=== PATIENT | female | born 2000 ===

== ENCOUNTER 2024-02-20 08:37 | Inpatient (IN) ==
[2024-02-20] MEDS ORDERED: LIDOCAINE 1% LOCAL 20 ML VIAL INFIL PRN (09:29)
[2024-02-20] MEDS ORDERED: OXYTOCIN 30 UNITS/NSS 30 UNITS/500 ML BAG IV PRN (09:29)
--- NOTE | 2024-02-20 09:31 | History & Physical Report ---
Date of Service February 20, 2024 Assessment & Plan (1) 37 weeks gestation of : (2) PROM (premature rupture of membranes): (3) Poor patient attendance of care: Plan admit, iv, labs. urine drug screen due to poor care. will plan po cytotec due to unfavorable cx and prom. pt and partner made aware of off label use of this medication in obstetrics. fhts categ 1. gbs obtained, will plan pcn given unknown status. nursing trying to obtain old records. which once reviewed we can decide of other labs indicated. Records arrived and reviewed. >75 min spent face to face, non face to face and documentation. History of Present Illness Chief Complaint: leaking fluid Primary Care Provider: NO PCP 23yo at 37 /7 wks ega by LMP 06/05/23 for EDC 03/11/24 presents to L&D unassigned with leaking fluid since 0745 today, clear. Patient notes that she has been getting routine pnc in [facility]. However moved to [place] and has not established local care although that was her intention. She started pnc early with [facility] and notes normal labs, u/s at 10wks that matched her lmp dates. Cici u/s at 20wks showing cpcs, and dilated renal pelves. Sent to [facility] and had 2 visits with them, first one about late 20's gestation where they confirmed these anatomy findings and then 32wks when they noted they resolved and dismissed her from [facility] care. Sounds like that was about the time she stopped having routine visits. Notes normal glucose testing. taking pnv. No gbs done. PNC c/b 1. obesity 2. Poor care, no records here. PNL no records here as of yet. OBH: g1 GYNH: nl paps no stds PMH: denies history PSH: none SH: denies tobacco, etoh or drugs FH: no alesha anom or mr, her or fob family. her family history with distant maternal relatives with breast cancer. 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 Required: No Beliefs That Will Affect Care: None marital status: Single Current Living Situation: Spouse Current Living Situation Comment: Lives with boyfriend Other Information That Helps Us Care for You: No Assistive Devices: None Review of Systems as per Subjective / HPI Physical Exam Constitutional: WD/WN, vitals as above Respiratory: normal respiratory effort, lungs clear to auscultation Cardiovascular: Rate/Rhythm: regular rate and regular rhythm Gastrointestinal (Abdomen): soft gravid nt efw 7-8# Musculoskeletal: no edema nontender calves Neurologic: grossly normal Psychiatric: A+Ox3, euthymic affect Genitourinary: Manual OB Exam: + cervical dilation (1.5), + cervical effacement 50%, + station -2 and + amniotic fluid (gross srom ) clear OB Exam Monitor Tracing: + external FHT monitor used, + external uterine monitor used (no ctx), + category I and + normal FHT variability Coding Level of Care Code 59328 INT INP/OBS CARE 3/75MIN Diagnoses 37 weeks gestation of Z3A.37 PROM (premature rupture of membranes) O42.90 Poor patient attendance of care O09.30
[2024-02-20] MEDS: LACTATED RINGER'S 1,000 ML IV PRN (10:33)
[2024-02-20] MEDS: PENICILLIN GK 6 MU in DEXTROSE 5% 250 ML IV STA (10:34)
[2024-02-20 10:43] LABS: Hematocrit (blood only) 33.1 % (37.0-47.0); Hemoglobin 10.9 g/dl (12.0-16.0); Mean Corpuscular Hemoglobin 26.3 pg (25.0-34.0); Mean Corpuscular Hgb Conc 32.9 g/dL (32.0-36.0); Mean Platelet Volume 10.8 fL (9.4-12.4); Platelet Count 189 K/uL (130-400); RDW Coefficient of Variation 13.9 % (11.5-14.5); RDW Standard Deviation 39.7 fL (36.4-46.3); Red Blood Count 4.14 M/uL (4.20-5.40); White Blood Count 9.36 K/ul (4.8-10.8)
[2024-02-20] MEDS: miSOPROStoL 50 MCG TAB PO ONE (11:22)
[2024-02-20] MEDS: miSOPROStoL 50 MCG TAB PO STA (11:29)
[2024-02-20 12:19] LABS: Amphetamines+Metham, Urine Neg (Neg); Barbiturates, Urine Neg (Neg); Benzodiazepine, Urine Neg (Neg); Cocaine, Urine Neg (Neg); MDMA (Ecstacy), Urine Neg (Neg); Marijuana, Urine Neg (Neg); Methadone, Urine Neg (Neg); Opiate, Urine Neg (Neg); Phencyclidine, Urine Neg (Neg)
[2024-02-20] MEDS: PENICILLIN GK 3 MU in DEXTROSE 5% 100 ML IV PRN (15:21)
--- NOTE | 2024-02-20 15:51 | Labor Progress Brief Note ---
Date of Service February 20, 2024 Subjective noticing more cramps Assessment & Plan (1) 37 weeks gestation of : (2) PROM (premature rupture of membranes): (3) Poor patient attendance of care: (4) Encounter for induction of labor: Plan s/p po cytotec. cx more favorable and now likely >3 ctx per 10min and so will start pitocin, pcn being given for gbs unknown. Admission and Anticipated Discharge Date Admission Date: February 20, 2024 Physical Exam Constitutional: WD/WN, vitals as above Genitourinary: Manual OB Exam: + cervical dilation (2), + cervical effacement (75%) and + station -2 OB Exam Monitor Tracing: + external FHT monitor used, + external uterine monitor used (q2-4), + category I and + normal FHT variability Results & Data Vital Signs (Past 12 Hours) Vital Signs Temp Resp BP 02/20/24 09:57 18 02/20/24 09:38 98.4 F 18 124/73 Coding Level of Care Code None Diagnoses 37 weeks gestation of Z3A.37 PROM (premature rupture of membranes) O42.90 Poor patient attendance of care O09.30 Encounter for induction of labor Z34.90
[2024-02-20] MEDS: OXYTOCIN 30 UNITS/NSS 30 UNITS/500 ML BAG IV PRN (15:58)
--- NOTE | 2024-02-20 18:38 | Anesthesiology Consultation ---
Date of Service February 20, 2024 Assessment & Plan Chart Review Chart Review: Acceptable Risk for Labor Epidural Consults Requested none History Height/Weight Height: 5 ft 3 in Weight: 107.955 kg Allergies Allergy/AdvReac Type Severity Reaction Status Date / Time No Known Allergies Allergy Verified 02/20/24 09:51 Medications Active Medications Generic Name Dose Route Start Last Admin Trade Name Freq PRN Reason Stop Dose Admin Lactated Ringer's 1,000 mls @ 125 mls/hr 02/20/24 09:29 02/20/24 11:28 Lr IV 02/22/24 09:28 125 mls/hr .Q8H PRN Infusion L&D Protocol Protocol Penicillin G Potassium 3 mu/ 106 mls @ 100 mls/hr 02/20/24 12:29 02/20/24 16:21 Dextrose IV 03/01/24 12:28 Infused Q4H PRN Infusion GBS(+) Until Delivery Oxytocin 30 units in 500 mls @ 7 mls/hr 02/20/24 10:04 02/20/24 17:50 Pitocin 30 Units/Nss IV 02/22/24 10:03 0.42 units/hr .Q24H PRN 7 mls/hr Labor Induction/Augmentation Titration Protocol 0.42 UNITS/HR Past Medical History Medical History (Updated 02/20/24 @ 15:49 by Zaira Barrientos MD, FACOG) Heart murmur Hx of Allison's palsy Social History Smoking Status: Never smoker Hx Alcohol Use: No Hx Substance Use: No Review of Systems Constitutional: as per Subjective / HPI Physical Exam Vital Signs Last Vital Signs Temp 36.9 C 02/20/24 09:38 Resp 18 02/20/24 09:57 BP 124/73 02/20/24 09:38 Constitutional WD/WN, vitals as above Respiratory normal respiratory effort, lungs clear to auscultation Cardiovascular Rate/Rhythm: regular rate and regular rhythm Psychiatric A+Ox3, euthymic affect Genitourinary Manual OB Exam: + cervical dilation (2), + cervical effacement (75%) + 50%, + station + -2 and + amniotic fluid (gross srom ) + clear OB Exam Monitor Tracing: + external FHT monitor used, + external uterine monitor used (q2-4), + category I and + normal FHT variability Testing Laboratory Results 02/20/24 10:18
[2024-02-20] MEDS ORDERED: NALBUPHINE HCL 5 MG in SYRINGE 0 ML IV PRN (18:39)
[2024-02-20] MEDS ORDERED: SODIUM CHLORIDE 0.9% PF INJ 10 ML VIAL EPI PRN (18:39)
[2024-02-20] MEDS ORDERED: LIDOCAINE 2% MPF LOCAL 5 ML VIAL EPI PRN (18:39)
[2024-02-20] MEDS ORDERED: diphenhydrAMINE 50 MG/ML VIAL IV PRN (18:39)
[2024-02-20] MEDS ORDERED: BUPIVACAINE 0.25% PF 30 ML VIAL EPI PRN (18:39)
[2024-02-20] MEDS ORDERED: NALOXONE HCL 0.4 MG/1 ML VIAL/CARP IV PRN (18:39)
[2024-02-20] MEDS ORDERED: ROPIVACAINE 0.5% PF 5 MG/ML 20 ML VIAL EPI PRN (18:39)
[2024-02-20] MEDS ORDERED: ePHEDrine sulfate 50 MG/ML AMP IV PRN (18:39)
[2024-02-20] MEDS ORDERED: fentaNYL citrate PF 100 MCG/2 ML VIAL EPI PRN (18:39)
[2024-02-20] MEDS ORDERED: NALOXONE HCL 1 MG in SODIUM CHLORIDE 0.9% 1,000 ML IV PRN (18:39)
[2024-02-20] MEDS: BUPIVACAINE 0.25% PF 30 ML VIAL ONE (19:03)
[2024-02-20] MEDS: fentaNYL citrate PF 100 MCG/2 ML VIAL ONE (19:03)
[2024-02-20] MEDS: SODIUM CHLORIDE 0.9% PF INJ 10 ML VIAL ONE (19:05)
[2024-02-20] MEDS: fentANYL 2 MCG/ML BUPIVacaine 0.125%-NSS 100ML BAG EPI PRN (19:09)
[2024-02-20] MEDS: LIDOCAINE 2%/EPINEPHRINE 1:200,000 20 ML PF EPI STA (19:09)
[2024-02-20] MEDS: fentANYL 2 MCG/ML BUPIVacaine 0.125%-NSS 100ML BAG ONE (20:18)
[2024-02-20] MEDS: ePHEDrine sulfate 50 MG/ML AMP ONE (20:18)
[2024-02-20] MEDS: BUPIVACAINE 0.25% PF 30 ML VIAL EPI STA (20:19)
[2024-02-20] MEDS: SODIUM CHLORIDE 0.9% PF INJ 10 ML VIAL EPI STA (20:19)
[2024-02-20] MEDS: LIDOCAINE 2%/EPINEPHRINE 1:200,000 20 ML PF ONE (20:19)
[2024-02-20] MEDS: fentaNYL citrate PF 100 MCG/2 ML VIAL EPI STA (20:19)
--- NOTE | 2024-02-20 20:44 | Labor Progress Brief Note ---
Date of Service February 20, 2024 Subjective comfortable with epidural Assessment & Plan (1) Encounter for induction of labor: (2) 37 weeks gestation of : (3) PROM (premature rupture of membranes): (4) Poor patient attendance of care: Plan no cx change. will c/w pitocin. fhts categ 1. Admission and Anticipated Discharge Date Admission Date: February 20, 2024 Physical Exam Constitutional: WD/WN, vitals as above Genitourinary: Manual OB Exam: + cervical dilation (2-3), + cervical effacement 80% and + station (pit at 9) -2 OB Exam Monitor Tracing: + external FHT monitor used, + external uterine monitor used (q2-3), + category I and + normal FHT variability Results & Data Vital Signs (Past 12 Hours) Vital Signs Temp Resp BP 02/20/24 09:57 18 02/20/24 09:38 98.4 F 18 124/73 Coding Level of Care Code None Diagnoses Encounter for induction of labor Z34.90 37 weeks gestation of Z3A.37 PROM (premature rupture of membranes) O42.90 Poor patient attendance of care O09.30
[2024-02-21] MEDS ORDERED: oxyCODONE/ACETAMINOPHEN 5mg/325mg TAB PO PRN (01:20)
[2024-02-21] MEDS ORDERED: ACETAMINOPHEN 325 MG TAB PO PRN (01:20)
[2024-02-21] MEDS ORDERED: HYDROCORTISONE ACETATE 25 MG SUPP PR PRN (01:20)
[2024-02-21] MEDS ORDERED: IBUPROFEN 600 MG TAB PO PRN (01:20)
[2024-02-21] MEDS ORDERED: OXYTOCIN 30 UNITS/NSS 30 UNITS/500 ML BAG IV PRN (01:20)
[2024-02-21] MEDS: OXYTOCIN 20 UNITS/LR 1,002 ML IV SCH (01:39)
[2024-02-21 06:37] LABS: Hematocrit (blood only) 31.7 % (37.0-47.0)
[2024-02-21] MEDS: BENZOCAINE 20% SPRY 85 APPLN/85 GM CAN EXT PRN (07:19)
[2024-02-21] MEDS: DOCUSATE SODIUM 100 MG CAP PO SCH (08:47)
[2024-02-21] MEDS: PRENATAL VITAMIN 1 TAB PO SCH (08:47)
--- NOTE | 2024-02-21 08:59 | Anesthesia Procedure Note ---
Date of Service February 21, 2024 Anesthesia Post Epidural Note Vital Signs Vital Signs: Temp Pulse Resp BP Pulse Ox O2 Del Method 36.9 C 98 H 20 149/88 H 98 Room Air 02/21/24 04:05 02/21/24 04:05 02/21/24 04:05 02/21/24 04:05 02/21/24 04:05 02/21/24 04:05 Notes Mental Status: alert / awake / arousable and participated in evaluation Patient Amnestic to Procedure: No Nausea / Vomiting: adequately controlled Pain: adequately controlled Airway Patency, RR, SpO2: stable & adequate BP & HR: stable & adequate Hydration State: stable & adequate Neuraxial Anesthesia: was administered and sensory block resolved Anesthetic Complications: no major complications apparent and Pt Satisfied with anesthetic care Epidural: Removed without complications and With tip intact
[2024-02-21 12:17] LABS: GC (Neis gonorrhoeae) RNA Not Detected (NotDetected)
--- NOTE | 2024-02-22 05:28 | Obstetrical Progress Note ---
Date of Service February 22, 2024 Assessment & Plan (1) Encounter for care and examination after delivery: Plan: 23 yo post- day 1 s/p Continue post care Feels well today. Vital signs stable Encourage ambulation and Hgb stable, rubella unknown (Poor maternal care) Pain well controlled with ibuprofen Admission and Anticipated Discharge Date Admission Date: February 20, 2024 Supervising Physician Co-Signing Physician Notes Resident Physician Supervision Note: I interviewed and examined the patient. Discussed with Dr. Marrero and agree with findings and plan as documented in the note. Any exceptions or clarifications are listed here: Doing well. Has been seen by immigration case worker and resources given. Will be given our office number and advised can contact that number 28/05. Encouraged her to f/u for pp appointment in 6 weeks. Instructions given. Documented By: Kaur Taylor MD, FACOG Subjective 23 yo post- day 1 s/p Ambulation: ambulating normally Voiding: no voiding problems Passing Gas:: Yes Diet Tolerance:: regular diet Lochia:: Small Feeding Type:breast feeding Current Pain Level: Minimal Resting comfortably this AM in NAD. Denies ALLEN, CP, SOB, N/V/D, LE pain/swelling. Review of Systems Review of Systems: as per HPI Physical Exam Physical Exam: General: patient resting comfortably, NAD, non-toxic in appearance, AA&O x 4, answers questions appropriately. Skin: warm, dry, intact HEENT: NC/AT, anicteric sclera, conjunctiva without injection, moist mucus membranes. Heart: +S1/S2, regular, no m/r/g Lungs: equal air entry bilaterally, no rales/rhonchi/wheezes Abd: +BS, soft, NT/ND, uterine fundus firm at umbilicus Ext: warm, no clubbing/cyanosis or edema Neuro: nonfocal, patient AA&O x 4, speech intact, no facial droop, moving all extremities on command. Results & Data Vital Signs (Past 12 Hours) Vital Signs Temp Pulse Resp BP Pulse Ox O2 Del Method 02/22/24 00:00 36.8 C 90 18 133/90 98 Room Air 02/21/24 20:25 36.7 C 72 16 129/82 98 Room Air Resident Activity Tracking Resident Involvement: Resident Care Provided Care Provided: OB Delivery
[2024-02-22 10:02] LABS: Rubella IgG Ab Immune (Immune); Rubella IgG Qnt 26.3 IU/mL
[2024-02-22] MEDS: DIPHTHER/TETAN/PERTUS Vaccine (Tdap, Adol/Adult) 0.5mL IM ONE (11:55)
[2024-02-23] MEDS ORDERED: bisacodyL 10 MG SUPP PR PRN
--- NOTE | 2024-02-26 08:49 | Delivery Summary ---
Vaginal Delivery Summary Date of Service February 21, 2024 Vaginal Delivery Summary and 2nd Degree LAC The patient dilated to complete and pushed to deliver a viable male infant Apgars 8 and 9 via over 2nd degree perineal laceration. Loose nuchal x 2 reduced. Mouth and nose bulb suctioned at perineum. Shoulders and body delivered with ease. was vigorous and crying at . Cord clamped at 30 seconds of life and to maternal abdomen where the cord was then doubly clamped and cut. Placenta delivered spontaneously and intact, three-vessel cord. Hemostasis achieved with dilute pitocin and uterine massage. Laceration repaired in usual fashion with 3-0 vicryl. Cervix and sulci intact. QBL per nursing notes. Mother and baby stable in recovery. [facility] Vaginal Delivery Charge Delivery Type Details: and 2nd Degree LAC
== END 2024-02-22 13:15 | disposition home or self-care (01) | DRG 807 ==
LOC: OPB 08:37 → 4S1 08:51 → 4E2 02-21 04:11